=== PATIENT | male | born 1945 | race Caucasian/White ===

== ENCOUNTER 2017-04-11 05:39 | Emergency (ER) | payer MEDICARE ==
[2017-04-11 06:42] LABS: #Basophils 0.1 thou/uL (0.0-0.2); #Eosinphils 0.3 thou/uL (0.0-0.7); #Lymphocytes 3.5 thou/uL (1.20-3.40); #Monocytes 0.7 thou/uL (0.11-0.59); #Neutrophils 5.5 thou/uL (1.40-6.50); %Basophils 0.5 % (0.0-1.0); %Eosinophils 2.6 % (0.0-10.0); %Lymphocytes 35.4 % (21.0-51.0); %Monocytes 6.5 % (0.0-10.0); Hemoglobin 14.9 g/dL (14.0-18.0); Mean Corpuscular HGB CONC 33.6 g/dL (32.0-36.0); Mean Corpuscular Hemoglobin 29.1 pg (27.0-31.0); Mean Corpuscular Volume 86.6 fl (80.0-94.0); Mean Platelet Volume 8.1 fL (7.4-10.4); Platelet Count 207 thou/uL (130-400); RBC Distribution Width 12.7 % (11.5-14.5); Red Blood Cell (RBC) Count 5.11 mill/uL (4.70-6.10)
[2017-04-11 06:49] LABS: INR-International Normal Ratio 1.1; PTT 32.8 SEC (22.9-36.1); Prothrombin Time 14.1 SEC (12.0-14.7)
[2017-04-11 06:52] LABS: ALT (SGPT) 31 U/L (8-55); AST (SGOT) 18 U/L (5-34); Alkaline Phosphatase 69 U/L (40-150); Anion Gap 13 mmol/L (10-20); BUN (Urea Nitrogen) 21 mg/dL (8.4-25.7); Bilirubin, Total 0.8 mg/dL (0.2-1.2); Calc. Creatinine Clearance 0 mL/min (70-130); Calcium 9.3 mg/dL (7.8-10.44); Carbon Dioxide 24 mmol/L (23-31); Chloride 107 mmol/L (98-107); Estimated GFR-MDRD 86; Globulin 2.4 g/dL (2.4-3.5); Glucose 139 mg/dL (80-115); Protein, Total 6.4 g/dL (5.8-8.1); Sodium 140 mmol/L (136-145)
[2017-04-11 10:44] LABS: HBSAB Concentration 0.21 mIU/mL; Hep B Surf AB Non-Reactive (NonReactive); Hep B Surf Ag Non-Reactive S/CO (NonReactive)
[2017-04-11 14:16] LABS: Hemoglobin 13.5 g/dL (14.0-18.0)
[2017-04-11] MEDS ORDERED: Propofol 200 MG/20 ML VIAL ONE (16:01)
[2017-04-11] MEDS ORDERED: Lidocaine 1% PF 5 ML VIAL ONE (16:01)
--- NOTE | 2017-04-11 16:56 | OP ---
PREOPERATIVE DIAGNOSIS: Post polypectomy bleed. POSTOPERATIVE DIAGNOSES: 1. Post polypectomy bleed. Epinephrine 1:10,000, 5 mL and Hemoclip x3 placed at polypectomy site in the proximal right colon with good hemostasis. 2. Other polypectomy sites are visualized with no active bleeding or high risk stigmata of bleeding. CONCLUSION PROCEDURE: No active bleeding. RECOMMENDATIONS: Observation here for about 5 hours, clear liquid diet, if no bleeding. We would pl an on discharge to home. ANESTHESIA: TIVA. PROCEDURE IN DETAIL: After the patient was informed of the risks, benefits, possible complications o f endoscopy including perforation, bleeding, reaction to medication, and aspiration, informed consent was obtained. The patient was brought to endoscopy suite where he was sedated in gradual fashion. A rectal exam was performed, which revealed old blood. The endoscope was advanced through anal canal through the colon to cecum. The polypectomy site in the right colon was identified with visible ves gricelda and adherent clot. This was removed and there was slight oozing. I was injected with 1:10,000 e pinephrine and 3 Hemoclips were placed above the the edges and stopped the bleeding. The other polyp ectomy site in the right colon was normal. The polypectomy sites from the pseudopolyps in the sigmoi d colon showed no signs of active bleeding or high risk of stigmata of bleeding. The scope was irrig ated and revisualized to the best of our ability. There was one small polyp in the cecum, which was not removed, it was less than 3 mm in size. It will be addressed at his next scheduled colonoscopy. Retroflexed views in the rectum were normal. The scope was removed. The patient tolerated the proc edure well with no complications.
== END 2017-04-11 10:40 | disposition admitted as inpatient to this hospital (09) ==
LOC: ERS 05:39
DX: K91.841 Postprocedural hemorrhage of a digestive system organ or structure following other procedure (principal); K62.5 Hemorrhage of anus and rectum; G47.30 Sleep apnea, unspecified; I10 Essential (primary) hypertension; Z79.899 Other long term (current) drug therapy
CPT/HCPCS: 36415; 80053; 85025; 85610; 85730; 86480; 86706; 87340; 93005; J2001; J2704